=== PATIENT | female | born 1980 | race African-American/Black ===

== ENCOUNTER 2017-06-27 01:20 | Emergency (ER) | payer OTHER ==
[2017-06-27 01:29] VITALS: BP 119/76; PULSE 66; TEMP 98.8; BMI 35.6
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
[2017-06-27] MEDS ORDERED: SODIUM CHLORIDE 1,000 ML IV STA (01:50)
[2017-06-27] MEDS ORDERED: ACETAMINOPHEN 1000 MG/100 ML VIAL (NON FORMULARY) IVPB ONE (02:08)
[2017-06-27] MEDS ORDERED: ACETAMINOPHEN INJECTION 100 ML IVPB ONE (02:09)
[2017-06-27 02:40] LABS: BASOPHIL 0.4 % (0-2.0); EOSINOPHIL 1.3 % (0-4.5); MCH 25.7 pg (25.7-33.7); MEAN CELL VOLUME 80.2 fl (80-96); NEUTROPHILS 34.3 % (42.8-82.8); PLATELET COUNT 164 K/MM3 (134-434); RDW 13.9 % (11.6-15.6); WHITE BLOOD COUNT 6.6 K/mm3 (4.0-10.0)
[2017-06-27 02:41] LABS: URINE APPEARANCE CLEAR; URINE BILIRUBIN NEGATIVE (NEGATIVE); URINE BLOOD NEGATIVE (NEGATIVE); URINE COLOR YELLOW; URINE GLUCOSE (UA) NEGATIVE (NEGATIVE); URINE KETONE NEGATIVE (NEGATIVE); URINE LEUK ESTERASE NEGATIVE (NEGATIVE); URINE NITRITE NEGATIVE (NEGATIVE); URINE PROTEIN NEGATIVE (NEGATIVE); URINE UROBILINOGEN 4.0 E.U/dl mg/dL (0.2-1.0)
[2017-06-27 03:01] LABS: ALBUMIN 3.9 g/dl (3.4-5.0); ANION GAP 6 (8-16); CALCIUM 9.2 mg/dL (8.5-10.1); CO2 29 mmol/L (21-32); CREATININE 0.7 mg/dL (0.55-1.02); GLUCOSE,RANDOM 80 mg/dL (74-106); SGOT/AST 28 U/L (15-37); SGPT/ALT 38 U/L (12-78)
[2017-06-27 03:02] LABS: ALK PHOS 78 U/L (45-117); BILIRUBIN,TOTAL 0.4 mg/dL (0.2-1.0); TOT PROT 7.2 g/dl (6.4-8.2)
[2017-06-27] MEDS ORDERED: LEVOFLOXACIN 500 MG TABLET (FP) PO ONE (03:21)
[2017-06-27] MEDS ORDERED: metroNIDAZOLE 500 MG TABLET PO ONE (03:21)
[2017-06-27] MEDS ORDERED: metroNIDAZOLE 250 MG TABLET ONE (03:32)
[2017-06-27] MEDS ORDERED: LEVOFLOXACIN 500 MG TABLET (FP) ONE (03:32)
== END 2017-06-27 03:50 | disposition home or self-care (01) ==
LOC: FER 01:20
PROC: 3E033NZ Introduction of Analgesics, Hypnotics, Sedatives into Peripheral Vein, Percutaneous Approach (ICD-10-PCS; principal; 2017-06-27)
PROC: 3E0337Z Introduction of Electrolytic and Water Balance Substance into Peripheral Vein, Percutaneous Approach (ICD-10-PCS; 2017-06-27)
DX: N73.9 Female pelvic inflammatory disease, unspecified (principal); R73.03 Prediabetes; Z88.0 Allergy status to penicillin; Z88.6 Allergy status to analgesic agent; Z98.84 Bariatric surgery status
CPT/HCPCS: 36415; 80053; 81003; 84703; 85025; 87491; 87591; 99283-25

== ENCOUNTER 2019-11-15 19:29 | Emergency (ER) | payer OTHER ==
[2019-11-15 19:39] VITALS: BP 127/88; PULSE 71; TEMP 98.2; BMI 36.9
[2019-11-15 20:23] LABS: EPITHELIAL CELLS FEW /hpf
--- NOTE | 2019-11-15 20:37 | PDOC ---
Documentation entered by Beth Story SCRIBE, acting as scribe for Andreia Chi MD. Andreia Chi MD: This documentation has been prepared by the Jez salinas Aiswarya, SCRIBE, under my direction and personally reviewed by me in its entirety. I confirm that the documentation accurately reflects all work, treatment, procedures, and medical decision making performed by me. History of Present Illness - General Chief Complaint: Pain, Acute Stated Complaint: LEFT UPPER ABD PAIN Time Seen by Provider: 11/15/19 19:33 History Source: Patient Exam Limitations: No Limitations - History of Present Illness Initial Comments: 11/15/19 20:20 The patient is a 39 year old female, with a significant PMH of borderline diabetes and gastric sleeve procedure done on 02/15/16, who presents to the emergency department with abdominal pain that began today. The patient states the sharp, intermittent, stabbing and non radiating pain is located to the left upper quadrant with mild nausea. The patient states her last bowel movement was 3 days ago but this is her baseline since after the surgery. The patient denies chest pain, shortness of breath, headache and dizziness. Denies fever, chills, nausea, vomit, diarrhea and constipation.Denies dysuria, frequency, urgency and hematuria. Allergies: Penicillins, aspirin Past surgical history: gastric sleeve 02/15/16 Social history: None reported PCP: José Glass Past History - Past Medical History Allergies/Adverse Reactions: Allergies Allergy/AdvReac Type Severity Reaction Status Date / Time aspirin Allergy Severe Difficulty Verified 11/15/19 19:30 Breathing Penicillins Allergy Intermediate Rash Verified 11/15/19 19:30 Home Medications: Ambulatory Orders NK [No Known Home Medication] 11/15/19 Diabetes: Yes (BORDERLINE) - Surgical History Gastric Stapling: No (GASTRIC SLEEVE 02/15/16) - Psycho Social/Smoking Cessation Hx Smoking History: Never smoked Have you smoked in the past 12 months: No Hx Alcohol Use: No Drug/Substance Use Hx: No Substance Use Type: None, Alcohol Review of Systems - Review of Systems Able to Perform ROS?: Yes Comments:: 11/15/19 20:20 GENERAL/CONSTITUTIONAL: No fever or chills. No weakness. CARDIOVASCULAR: No chest pain or shortness of breath. RESPIRATORY: No cough, wheezing, or hemoptysis. GASTROINTESTINAL:+nausea.+LUQ pain. No vomiting, diarrhea or constipation. GENITOURINARY: No dysuria, frequency, or change in urination. MUSCULOSKELETAL: No joint or muscle swelling or pain. No neck or back pain. SKIN: No rash HEMATOLOGIC/LYMPHATIC: No anemia, easy bleeding, or history of blood clots. ALLERGIC/IMMUNOLOGIC: No hives or skin allergy. *Physical Exam - Vital Signs Last Vital Signs Temp Pulse Resp BP Pulse Ox 98.2 F 71 19 127/88 100 11/15/19 19:29 11/15/19 19:29 11/15/19 19:29 11/15/19 19:29 11/15/19 19:29 - Physical Exam 11/15/19 20:20 GENERAL:+obese. Awake, alert, and fully oriented, in no acute distress HEAD: No signs of trauma LUNGS: Breath sounds equal, clear to auscultation bilaterally. No wheezes, and no crackles HEART: Regular rate and rhythm, normal S1 and S2, no murmurs, rubs or gallops ABDOMEN: Soft, nontender, normoactive bowel sounds. No guarding, no rebound. No masses EXTREMITIES: Normal range of motion, no edema. No clubbing or cyanosis. No cords, erythema, or tenderness NEUROLOGICAL: Cranial nerves II through XII grossly intact. Normal speech, normal gait SKIN: Warm, Dry, normal turgor, no rashes or lesions noted. ED Treatment Course - LABORATORY CBC & Chemistry Diagram: 11/15/19 20:39 11/15/19 20:39 - ADDITIONAL ORDERS Additional order review: Laboratory Results 11/15/19 11/15/19 19:30 19:30 Urine Color Yellow Urine Appearance Clear Urine pH 7.0 Urine Protein Negative Urine Glucose (UA) Negative Urine Ketones Negative Urine Blood 1+ H Urine Nitrite Negative Urine Bilirubin Negative Urine Urobilinogen >=8.0 e.u./dl H Ur Leukocyte Esterase Negative Urine RBC 2-5 Urine WBC 0-2 Ur Transition Epith Cell Few Urine HCG, Qual Negative - RADIOLOGY Radiology Studies Ordered: Category Date Time Status ABDOMEN & PELVIS CT WITH CONTR [CT] Stat CT Scan 11/15/19 20:11 Ordered Medical Decision Making - Medical Decision Making 11/15/19 20:36 pt presents to the ED complaining of the acute onset of LUQ abdominal pain that started today. Denies nausea, vomiting, or fever and abdomen is non tender, but given history, will check CT abdomen pelvis to rule out obstruction or other intraabdominal pathology. Will likely discharge home if CT is negative. 11/15/19 23:47 CT negative for acute findings. Patient feels better and is asking to eat and go home. Will discharge home with instructions to return to the ED for worsening symptoms. Discharge - Discharge Information Problems reviewed: Yes Clinical Impression/Diagnosis: Abdominal pain Qualifiers: Abdominal location: left upper quadrant Qualified Code(s): R10.12 - Left upper quadrant pain Condition: Good Disposition: HOME - Admission No - Follow up/Referral Referrals: José Glass [Primary Care Provider] - - Patient Discharge Instructions Patient Printed Discharge Instructions: DI for Abdominal Pain-Adult Additional Instructions: you came to the Ed for abdominal pain. We did blood work and a cat scan, which were normal. you should return to the ED for severe pain, pain with fever, bloody vomit or stool, severe nausea and vomiting unable to tolerate liquids, other new or worsening symptoms. Follow up with your doctor. - Post Discharge Activity
[2019-11-15 20:52] LABS: BASO % 0.4 % (0-2.0); EOS % 1.4 % (0-4.5); HEMATOCRIT 35.5 % (32.4-45.2); HEMOGLOBIN 10.9 GM/dl (10.7-15.3); LYMPH % 42.2 % (8-40); MCH 22.7 pg (25.7-33.7); MCHC 30.7 g/dl (32.0-36.0); MEAN PLT VOLUME 9.3 fl (7.5-11.1); MONO % 13.8 % (3.8-10.2); NEUT % 42.2 % (42.8-82.8); PLATELET COUNT 244 K/MM3 (134-434); RDW 15.8 % (11.6-15.6); WHITE BLOOD COUNT 6.9 K/mm3 (4.0-10.8)
[2019-11-15 20:56] LABS: ADD RBC MORPHOLOGY YES
[2019-11-15 21:07] LABS: ALBUMIN 3.8 g/dl (3.4-5.0); BILIRUBIN,TOTAL 0.5 mg/dl (0.2-1); CALCIUM 8.9 mg/dl (8.5-10); CREATININE 0.7 mg/dl (0.55-1.3); POTASSIUM 4.2 mmol/L (3.5-5.1); TOT PROT 7.2 g/dl (6.4-8.2)
[2019-11-15 21:46] LABS: ANISOCYTOSIS OCCASIONAL
[2019-11-15 21:47] LABS: PLATELET ESTIMATE ADEQUATE
== END 2019-11-16 | disposition home or self-care (01) ==
LOC: FER 19:29
DX: R10.13 Epigastric pain (principal); R73.03 Prediabetes; Z98.84 Bariatric surgery status; Z88.0 Allergy status to penicillin; Z88.6 Allergy status to analgesic agent
CPT/HCPCS: 36415; 74177-TC; 80053; 81003; 81015; 83690; 84703; 85025; 99282-25; Q9967